=== PATIENT | female | born 1945 | race Caucasian/White ===

== ENCOUNTER 2016-09-08 13:09 | Outpatient (CLI) | payer OTHER ==
[2013-02-10 07:57] VITALS: BP 161/80
[2016-09-08 13:58] LABS: eGFR (African) > 60; eGFR (Non-African) > 60
== END 2016-09-08 13:10 ==
LOC: LAB 13:09
PROVIDERS: ATTEND Family Medicine
DX: I10 Essential (primary) hypertension (principal)
CPT/HCPCS: 36415; 80053; 80061

== ENCOUNTER 2017-06-05 11:05 | Emergency (ER) | payer OTHER ==
[2017-06-05] MEDS ORDERED: ONDANSETRON HCL/PF 4 MG/ 2ML VIAL ONE (11:17)
[2017-06-05] MEDS ORDERED: 0.9 % SODIUM CHLORIDE 1,000 ML IV ONE ×2 (11:17→11:18)
[2017-06-05] MEDS ORDERED: ONDANSETRON HCL/PF 4 MG/ 2ML VIAL IVP ONE (11:18)
--- NOTE | 2017-06-05 11:18 | ED Physician Documentation ---
General Adult - HISTORIAN Historian: patient - HPI Stated Complaint: N/V fall and hit head Chief Complaint: Nausea,Vomiting,Diarrhea Onset: days ago (2) Timing: still present, worse since Severity: mild Further Comments: yes (She states last night she started to feel nauseated and she notes she got up to use the rest room and fell. She does note she hit the back of her head. Denies any LOC. She denies any pain in her head. She has had vomiting and diarrhea since last night. Denies a fever. Denies any sick contacts. She denies any change in status. She has no issues with movement in any way. Mild headache. She does feel all over weak.) Last known Well Code/Unknown Code: Unknown - ROS CONST: recent illness, weakness. denies: fever EYES/ENT: denies: problems with vision, sore throat, nasal congestion CVS/RESP: denies: cough GI/: abdominal pain (not pain but she feels the abdomen is sore from vomiting ), vomiting, nausea, diarrhea. denies: problems urinating MS/SKIN/LYMPH: denies: neck pain - PAST HX Past History: other Other History: other Surgeries/Procedures: other Immunizations: UTD Allergies/Adverse Reactions: Allergies Allergy/AdvReac Type Severity Reaction Status Date / Time Penicillins Allergy Unknown Verified 06/05/17 11:29 Home Medications: Ambulatory Orders Medication Instructions Recorded NK [NK] 02/10/13 - SOCIAL HX Smoking History: non-smoker Alcohol Use: none Drug Use: none - FAMILY HX Family History: No - VITAL SIGNS Vital Signs: Vital Signs Temp Pulse Resp BP Pulse Ox 161/80 02/10/13 07:56 - REVIEWED ASSESSMENTS Nursing Assessment Reviewed: Yes Vitals Reviewed: Yes Progress - Progress Progress: 1233: Nausea is improved. She is ready to go home. She understands to follow up with Dr Michel to check white count or any concerns. DG ED Results Lab/Radiology - Radiology Radiology Impressions: CLINICAL HISTORY: PT STATES N/V FOR X 2 DAYS. FALL X 2 DAYS (Hx) / FALL (DICOM Hx) TECHNIQUE: 5 mm contiguous axial images of the brain, noncontrast. FINDINGS: There is no evidence of intracranial mass effect, hemorrhage, or acute hydrocephalus. The lateral ventricles are symmetrical and the 4th ventricle is midline without shift. No acute brain parenchymal changes or extra-axial fluid collections are identified. The posterior fossa contents are within normal limits. The calvarium is intact. The visualized sinuses and mastoid air cells are clear. IMPRESSION: No acute intracranial process. Electronically signed on Jun 05, 2017 11:53:54 AM BRUSH STAINER by: Anson Ramos General Adult Physical Exam - PHYSICAL EXAM GENERAL APPEARANCE: mild distress EENT: eye inspection normal, RHEA NECK: normal inspection RESPIRATORY: no resp distress, chest non-tender, breath sounds normal CVS: reg rate & rhythm, heart sounds normal, equal pulses, no murmur ABDOMEN: soft, normal bowel sounds BACK: normal inspection SKIN: warm/dry, normal color EXTREMITIES: non-tender, normal range of motion, no evidence of injury, no edema NEURO: oriented X3, CN's nml as tested, motor nml, sensation nml, mood/affect nml, cognition normal Discharge Clincal Impression: Gastroenteritis Referrals: Susan Michel MD [Primary Care Provider] - 2 Days Comments: Increase fluids Tylenol or Ibuprofen OTC for pain Zofran 4 mg every 8 hours as needed for nausea Rest Move position slowly Return to PCP or ER for any concerns Blaine foods advance as tolerated Condition: Stable Disposition: 01 HOME, SELF-CARE Decision to Admit: NO Date of Decison to Admit: 06/05/17 Decision Time: 12:29
[2017-06-05 11:38] LABS: BASOPHILS % 0.3 (0.0-1.5); EOSINOPHILS % 1.2 % (0.0-6.8); MEAN CORPUSCULAR HEMOGLOBIN 32.5 pg (28.0-34.0); MEAN CORPUSCULAR VOLUME 96.3 fl (80.0-100.0); MONOCYTES % 2.5 % (0.0-11.0); NEUTROPHILS # 10.7 # k/uL (1.4-7.7)
[2017-06-05 11:48] LABS: eGFR (African) > 60; eGFR (Non-African) > 60
[2017-06-05] MEDS ORDERED: PROMETHAZINE HCL 25 MG/ML VIAL ONE (11:57)
--- NOTE | 2017-06-05 12:32 | Diagnostic Imaging Report ---
[facility] [address] [facility] [address] [address] Report Submission Date: Jun 05, 2017 11:53:54 AM AGENCY DIRECTOR Patient Study Name: DAR MAN Date: Jun 05, 2017 11:27:48 AM AGENCY DIRECTOR Modality Type: CT\SR Gender: F Description: CT BRAIN W/O CONTRAST : 47 Institution: [facility] Physician: AYANA CROWELL Electronically signed on Jun 05, 2017 11:53:54 AM AGENCY DIRECTOR by: Anson BRICENO
[2017-06-05 12:47] VITALS: BP 134/48
[2017-06-06 06:08] LABS: APPEARANCE,URINE CLOUDY (CLEAR); COLOR,URINE YELLOW (YELLOW); OCCULT BLOOD,URINE 2+ (NEGATIVE); PH URINE 7.5 (5.0 - 8.0); UROBILINOGEN URINE 0.2 Eu (0.2-1.0)
== END 2017-06-05 12:45 | disposition home or self-care (01) ==
LOC: ED 11:05
DX: K52.9 Noninfective gastroenteritis and colitis, unspecified (principal)
CPT/HCPCS: 70450; 80053; 81002; 85025; J2405; J2550; J7030; 96365; 96375; 99283; S1016

== ENCOUNTER 2017-06-05 20:21 | Emergency (ER) | payer OTHER ==
--- NOTE | 2017-06-05 20:39 | ED Physician Documentation ---
Nausea/Vomiting/Diarrhea - HISTORIAN Historian: patient - HPI Stated Complaint: Nausea and vomiting Chief Complaint: Nausea,Vomiting,Diarrhea Onset: other (today she was seen one time in ER for N/V) Duration: waxing, waning Last known Well Code/Unknown Code: Unknown Timing: still present Severity: mild Further Comments: yes (She was seen earlier in day . CT of head was normal. WBC slightly elevated.) - ROS CONST: recent illness, chills CVS/RESP: denies: chest pain, shortness of breath, cough GI/: none MS/SKIN/LYMPH: denies: rash NEURO/PSYCH: headache - PAST HX Past History: none Surgeries/Procedures: other Immunizations: UTD Allergies/Adverse Reactions: Allergies Allergy/AdvReac Type Severity Reaction Status Date / Time Penicillins Allergy Unknown Verified 06/05/17 20:51 - SOCIAL HX Smoking History: non-smoker Alcohol Use: none Drug Use: none - FAMILY HX Family History: none - VITAL SIGNS Vital Signs: Vital Signs Temp Pulse Resp BP Pulse Ox 134/48 06/05/17 12:45 - REVIEWED ASSESSMENTS Nursing Assessment Reviewed: Yes Vitals Reviewed: Yes ED Results Lab/Radiology - Lab Results Lab Results: Lab Results 06/05/17 06/05/17 22:29 20:55 WBC 14.40 K/ul H K/ul (4.00-12.00) RBC 4.89 M/ul M/ul (3.90-5.20) Hgb 15.3 g/dL g/dL (12.0-16.0) Hct 46.6 % H % (34.5-46.5) MCV 95.3 fl fl (80.0-100.0) MCH 31.2 pg pg (28.0-34.0) MCHC 32.8 g/dL g/dL (30.0-36.0) RDW 13.5 % % (11.3-14.3) Plt Count 558 K/mm3 H K/mm3 (130-400) Neut % (Auto) 84.9 % H % (39.0-79.0) Lymph % (Auto) 8.9 % L % (16.0-50.0) [place] % (Auto) 4.1 % % (0.0-11.0) Eos % (Auto) 0.8 % % (0.0-6.8) Baso % (Auto) 0.3 (0.0-1.5) Neut # (Auto) 12.2 # k/uL H # k/uL (1.4-7.7) Lymph # (Auto) 1.3 # k/uL # k/uL (0.6-4.0) [place] # (Auto) 0.6 # k/uL # k/uL (0.0-0.9) Eos # (Auto) 0.1 # k/uL # k/uL (0.0-0.6) Baso # (Auto) 0.0 # k/uL # k/uL (0.0-0.5) Reactive Lymphs % 0.9 % % (0.0-5.0) Reactive Lymphs # 0.1 # k/uL # k/uL (0.0-0.8) Sodium 144 mmol/L mmol/L (136-145) Potassium 3.5 mmol/L mmol/L (3.5-5.1) Chloride 105 mmol/L mmol/L (98-107) Carbon Dioxide 22 mmol/L mmol/L (22-30) BUN 6 mg/dL L mg/dL (7-17) Creatinine 0.70 mg/dL mg/dL (0.52-1.04) Est GFR ( Amer) > 60 (60 - ) Est GFR (Non-Af Amer) > 60 (60 - ) Glucose 125 mg/dL H mg/dL (74-106) Calcium 9.8 mg/dL mg/dL (8.4-10.2) Total Bilirubin 0.7 mg/dL mg/dL (0.2-1.3) AST 25 U/L U/L (15-46) ALT 29 U/L U/L (13-69) Alkaline Phosphatase 103 U/L U/L (38-126) Total Protein 7.2 g/dL g/dL (6.3-8.2) Albumin 4.1 g/dL g/dL (3.5-5.0) - Radiology Radiology Impressions: CT of the abdomen and pelvis without contrast CLINICAL HISTORY: Nausea and vomiting for 1 day. TECHNIQUE: CT examination of the abdomen and pelvis is performed without oral or intravenous administration of contrast. Sagittal and coronal reconstructions are performed by the technologist. FINDINGS: There is minimal dependent atelectasis in the lung bases. The visualized lung bases are otherwise clear. There is a small hiatal hernia. The liver and spleen demonstrate fairly normal attenuation without focal defect. Gallbladder is normally distended. There is no pancreatic or adrenal abnormality. Kidneys are of normal size, shape and position. Vascular calcification is present in the abdominal aorta without evidence of aneurysm. The appendix is visualized and is within normal limits. Bladder is unremarkable. There is no free fluid in the pelvis or abdomen. Uterus and adnexal structures are within normal limits for the patient's age. Mild spondylitic changes are seen thoracolumbar spine. IMPRESSION: Hiatal hernia. Vascular calcification. Negative appendix. Mild lumbar spondylosis. Electronically signed on Jun 05, 2017 10:10:06 PM STRUCTURAL ENGINEERING DRAFTING OFFICER by: Erasto Baez - Orders Orders: ED Orders Category Date Time Status IV Started NOW Care 06/05/17 20:[address] ABD & PELVIS W/O CON Stat Exams 06/05/17 Taken CBC/PLATELET/DIFF Stat Lab 06/05/17 20:55 Completed CMP Stat Lab 06/05/17 22:29 Completed 0.9 % Sodium Chloride [Normal Saline] 1,000 ml Med 06/05/17 20:41 Discontinued IV .STK-MED 0.9 % Sodium Chloride [Normal Saline] 1,000 ml Med 06/05/17 20:40 Discontinued IV Q1H Ondansetron HCl/Pf [Zofran 4 mg/2 ml] Med 06/05/17 20:40 Discontinued 4 mg .ROUTE .STK-MED ONE Ondansetron HCl/Pf [Zofran 4 mg/2 ml] Med 06/05/17 20:40 Discontinued 4 mg IVP NOW ONE Nausea Physical Exam - EXAM General Appearance: no acute distress, alert EENT: eye inspection normal, RHEA Neck: normal inspection Respiratory: no resp distress, chest non-tender, breath sounds normal CVS: reg rate & rhythm, heart sounds normal, no murmur Abdomen: non-tender. No: abnml bowel sounds Skin: warm/dry, normal color Extremities: non-tender, normal range of motion, no evidence of injury, no edema Neuro/Psych: oriented X3, CN's nml as tested, motor nml, sensation nml Discharge Clincal Impression: Gastroenteritis Referrals: [place],Susan, MD [Primary Care Provider] - 2 Days Comments: Increase fluids Zofran as needed for nausea Move positions slowly Follow up with PCP in 2-4 days Return to ER for any concerns Condition: Stable Disposition: 01 HOME, SELF-CARE Decision to Admit: NO Date of Decison to Admit: 06/05/17 Decision Time: 22:47
[2017-06-05] MEDS ORDERED: ONDANSETRON HCL/PF 4 MG/ 2ML VIAL ONE (20:40)
[2017-06-05] MEDS ORDERED: ONDANSETRON HCL/PF 4 MG/ 2ML VIAL IVP ONE (20:40)
[2017-06-05] MEDS ORDERED: 0.9 % SODIUM CHLORIDE 1,000 ML IV ONE ×2 (20:40→20:41)
[2017-06-05 20:59] LABS: BASOPHILS % 0.3 (0.0-1.5); EOSINOPHILS % 0.8 % (0.0-6.8); MEAN CORPUSCULAR HEMOGLOBIN 31.2 pg (28.0-34.0); MEAN CORPUSCULAR VOLUME 95.3 fl (80.0-100.0); MONOCYTES % 4.1 % (0.0-11.0); NEUTROPHILS # 12.2 # k/uL (1.4-7.7)
[2017-06-05 22:48] LABS: eGFR (African) > 60; eGFR (Non-African) > 60
--- NOTE | 2017-06-05 23:05 | Diagnostic Imaging Report ---
AYANA CROWELL [facility] [address] [facility] [address] [place], [place]. [address] Report Submission Date: Jun 05, 2017 10:10:06 PM CREW BOAT OPERATOR Patient Study Name: DAR MAN Date: Jun 05, 2017 9:46:02 PM CREW BOAT OPERATOR Modality Type: CT\SR Gender: F Description: CT ABD & PELVIS W/O CO : 47 Institution: [facility] Physician: AYANA CROWELL CT of the abdomen and pelvis without contrast CLINICAL HISTORY: Nausea and vomiting for 1 day. TECHNIQUE: CT examination of the abdomen and pelvis is performed without oral or intravenous administration of contrast. Sagittal and coronal reconstructions are performed by the technologist. FINDINGS: There is minimal dependent atelectasis in the lung bases. The visualized lung bases are otherwise clear. There is a small hiatal hernia. The liver and spleen demonstrate fairly normal attenuation without focal defect. Gallbladder is normally distended. There is no pancreatic or adrenal abnormality. Kidneys are of normal size, shape and position. Vascular calcification is present in the abdominal aorta without evidence of aneurysm. The appendix is visualized and is within normal limits. Bladder is unremarkable. There is no free fluid in the pelvis or abdomen. Uterus and adnexal structures are within normal limits for the patient's age. Mild spondylitic changes are seen thoracolumbar spine. IMPRESSION: Hiatal hernia. Vascular calcification. Negative appendix. Mild lumbar spondylosis. Electronically signed on Jun 05, 2017 10:10:06 PM CREW BOAT OPERATOR by: Erasto BRICENO
[2017-06-06 01:35] VITALS: BP 144/55
== END 2017-06-05 23:10 | disposition home or self-care (01) ==
LOC: ED 20:21
DX: K52.9 Noninfective gastroenteritis and colitis, unspecified (principal)
CPT/HCPCS: 74176; 80053; 85025; J2405; J7030; 96366; 96375; S1016

== ENCOUNTER 2018-07-05 11:05 | Outpatient (CLI) | payer OTHER ==
[2017-06-06 01:35] VITALS: BP 144/55
--- NOTE | 2018-07-06 06:27 | Diagnostic Imaging Report ---
DAYANA RAMON [facility] [address] [facility].[address] [address] Report Submission Date: Jul 06, 2018 1:02:14 AM WEB MERCHANDISER Patient Study Name: DAR MAN Date: Jul 05, 2018 12:00:00 AM WEB MERCHANDISER Modality Type: DEXA\OT Gender: F Description: DEXA : 47 Institution: [facility] Physician: DAYANA RAMON Bone density study History: Postmenopausal female Bone mineral density of the lumbar spine and bilateral hips was performed using DEXA technique. Comparison is made with October 2015. Bone mineral density from L1 through L4 is 1.142 g/cm2 corresponding with a T- score 0.3 below the young adult reference. Total bone mineral density of left femoral neck is 0.949 g/cm2 corresponding with a T-score 0.5 below the young adult reference. Total bone mineral density of the right femoral neck is 0.905 g/cm2 corresponding with a T-score 0.8 below the young adult reference. Total mean bone mineral density of both hips is 0.927 g/cm2 corresponding with a T- score 0.6 below the young adult reference. In 2016, bone mineral density of the lumbar spine was 1.133 g/cm2. In 2016, total bone mineral density of the left hip was 0.979 g/cm2 and total bone mineral density of the right hip was 0.954 g/cm2. Since 2016, there has been a 0.8% increase in bone mineral density of the lumbar spine. There has been a 3.1% decrease in total bone mineral density of the left hip and a 5.1% decrease in total bone mineral density of the right hip since 2016. Impression: Normal bone mineral density of the lumbar spine and bilateral hips. Please see body of report for full detail with regard to a 2016 comparison. Electronically signed on Jul 06, 2018 1:02:14 AM ANGELES by: Rebekah BRICENO
== END 2018-07-05 11:06 ==
LOC: RAD 11:05
PROVIDERS: ATTEND Family Medicine
DX: M81.0 Age-related osteoporosis without current pathological fracture (principal)
CPT/HCPCS: 77080

== ENCOUNTER 2019-03-31 18:40 | Emergency (ER) | payer OTHER ==
--- NOTE | 2019-03-31 19:00 | ED Physician Documentation ---
General Adult - HISTORIAN Historian: patient - HPI Stated Complaint: Rash on chin Chief Complaint: General Adult Onset: days ago Timing: still present Further Comments: yes (Pt is a 73 yo female with c/o rash on her chin. Pt has a similar rash on her L cheek in the past, which was tx'd with abx by her pcp. Pt notes that she had a hair growing on her chin that she pulled out and that rash and slight swelling began after that. Sx started about 3 days ago. No fever.) - ROS CONST: no problems EYES/ENT: none CVS/RESP: none GI/: other (occasional upset stomach, not today) MS/SKIN/LYMPH: other (erythema, mild swelling on chin) - PAST HX Past History: other (CVA/TIA, HLD, HTN, ortho surg) Allergies/Adverse Reactions: Allergies Allergy/AdvReac Type Severity Reaction Status Date / Time Penicillins Allergy Unknown Verified 03/31/19 19:22 Home Medications: Ambulatory Orders Medication Instructions Recorded Acetaminophen [Tylenol Extra 1,000 mg PO PRN 03/31/19 Strength] Aspirin EC [Ecotrin] 81 mg PO DAILY 03/31/19 Bisacodyl [Dulcolax] 5 mg PO DAILY 03/31/19 Cephalexin [Keflex] 500 mg PO Q8H #30 capsule 03/31/19 Docusate Sodium [Colace] 10 cap PO DAILY 03/31/19 Mv,Calcium,Min/Iron/Folic/Vitk 1 tab PO DAILY 03/31/19 [Multi For Her Tablet] - SOCIAL HX Smoking History: cigarettes - FAMILY HX Family History: No - VITAL SIGNS Vital Signs: Vital Signs Temp Pulse Resp BP Pulse Ox 144/55 06/06/17 01:31 - REVIEWED ASSESSMENTS Nursing Assessment Reviewed: Yes Vitals Reviewed: Yes Progress - Progress Progress: Rx Keflex 500 mg. Take one every 8 hours for 10 days. (Pt has taken Keflex in the past.) Follow up with primary provider, if condition worsens or you do not see improvement in 2 or 3 days. hematuria on urine dipstick, recheck with pcp after keflex. General Adult Physical Exam - PHYSICAL EXAM GENERAL APPEARANCE: mild distress EENT: pharynx normal NECK: normal inspection, supple RESPIRATORY: no resp distress, chest non-tender, breath sounds normal, other (distant breath sounds) CVS: reg rate & rhythm, heart sounds normal BACK: normal inspection SKIN: other (erythema, mild swelling R side of chin) EXTREMITIES: non-tender, normal range of motion, no evidence of injury NEURO: oriented X3, motor nml, sensation nml Discharge Clincal Impression: Abscess or cellulitis of chin, hematuria Prescriptions: Cephalexin [Keflex] 500 mg PO Q8H #30 capsule Referrals: Susan Michel MD [Primary Care Provider] - 2 Days Condition: Stable Disposition: 01 HOME, SELF-CARE Decision to Admit: NO Decision Time: 19:39
[2019-03-31] MEDS ORDERED: CEPHALEXIN 250 MG CAPSULE PO ONE (19:25)
[2019-03-31 19:41] VITALS: BP 139/65
[2019-03-31 20:30] LABS: APPEARANCE,URINE CLEAR (CLEAR); COLOR,URINE YELLOW (YELLOW)
[2019-03-31 20:31] LABS: OCCULT BLOOD,URINE 2+ (NEGATIVE); UROBILINOGEN URINE 0.2 Eu (0.2-1.0)
== END 2019-03-31 19:35 | disposition home or self-care (01) ==
LOC: ED 18:40
DX: L02.01 Cutaneous abscess of face (principal); R31.9 Hematuria, unspecified
CPT/HCPCS: 81002; 99283; 99284